=== PATIENT | female | born 1990 | race Asian ===

== ENCOUNTER → 2018-10-10 | Day surgery (SDC) | payer OTHER ==
--- NOTE | 2018-10-10 11:39 | RAD REPORT ---
EXAM DESCRIPTION: Ultrasound-guided vacuum assisted left breast core biopsy CLINICAL HISTORY: Breast mass N63.21 COMPARISON: BREAST/AXILLA, LIMITED dated 09/30/2018 FINDINGS: Informed consent was obtained and time-out was performed. The patient's left breast was prepped and draped in the usual sterile fashion. 1% lidocaine was used for local anesthetic purposes. Utilizing aseptic technique and ultrasound guidance, vacuum assisted core biopsy device was used to o btain 2 core specimen through the mass of interest periareolar 12 o'clock position left breast. A pos t biopsy clip was then placed. All collected material was sent for cytology. Patient tolerated procedure well. IMPRESSION: Successful ultrasound guided vacuum assisted left breast mass biopsy.
== END | disposition home or self-care (01) ==
LOC: DS 09:45
PROVIDERS: ATTEND Family Medicine
PROC: 0HBU3ZX Excision of Left Breast, Percutaneous Approach, Diagnostic (ICD-10-PCS; principal; 2018-10-10)
DX: N60.92 Unspecified benign mammary dysplasia of left breast (principal)
CPT/HCPCS: 19083; 88305